=== PATIENT | female | born 1995 | race Caucasian/White ===

== ENCOUNTER → 2017-06-21 | Outpatient (REF) | payer MEDICARE | LOC: M SFHCPLAZ 14:42 | DX: N61.1 Abscess of the breast and nipple (principal) | CPT/HCPCS: 87070 ==

== ENCOUNTER → 2018-04-28 | Outpatient (REF) | payer MEDICARE | LOC: M SFHCPLAZ 17:12 | DX: N61.1 Abscess of the breast and nipple (principal) | CPT/HCPCS: 87186 ==

== ENCOUNTER 2018-08-15 05:43 | Day surgery (SDC) | payer OTHER ==
[~2018-08-15] VITALS: Ht 152.4 cm; Wt 72.6 kg
[~2018-08-15 05:43] MED LIST: METF500T13 PO
[2018-08-15 06:41] LABS: URINE PREG TEST NEGATIVE (NEGATIVE)
[2018-08-15] MEDS ORDERED: PROPOFOL 200 MG/20 ML VIAL As Ordered ONE (07:05)
[2018-08-15] MEDS ORDERED: MIDAZOLAM INJ 2 MG/2 ML VIAL (J2250) As Ordered ONE (07:05)
[2018-08-15] MEDS ORDERED: fentaNYL 100 MCG/2 ML INJECTION (J3010) As Ordered ONE (07:05)
[2018-08-15] MEDS ORDERED: LIDOCAINE 2% INJ 100 MG/5 ML SDV (FOR ANES.) As Ordered ONE (07:05)
[2018-08-15] MEDS ORDERED: ceFAZolin SOD 1 GM in D5W MINI-BAG PLUS 50 ML IV ONE (07:30)
[2018-08-15] MEDS ORDERED: LIDOCAINE 2% W/EPIN INJ 20ML **PRES FREE As Ordered ONE (07:33)
--- NOTE | 2018-08-15 08:08 | POST-OPPD ---
Postoperative Procedure Note Date Of Procedure: Aug 15, 2018 PREOPERATIVE DIAGNOSIS: Right breast cyst POSTOPERATIVE DIAGNOSIS: same FINDINGS: large cyst sac PROCEDURE: Excision right breast cyst SURGEON: Dr Cruz ANESTHESIA: local with seadation SPECIMENS: right breast cyst ESTIMATED BLOOD LOSS: 1cc REPLACED: none DRAINS: none COMPLICATIONS: none POSTOPERATIVE CONDITION: stable JUDY CRUZ DO Aug 15, 2018 08:08
[2018-08-15 08:30] VITALS: BP 126/66
[2018-08-15] MEDS ORDERED: PERCOCET 5MG/325MG TAB PO PRN (08:30)
[2018-08-15] MEDS ORDERED: LR 1,000 ML IV SCH (08:30)
[2018-08-15] MEDS ORDERED: ONDANSETRON 4MG/2ML VIAL (J2405) IV PRN (08:30)
[2018-08-15] MEDS ORDERED: METOCLOPRAMIDE INJ 10MG/2ML VIAL (J2765) IV PRN (08:30)
[2018-08-15] MEDS ORDERED: fentaNYL 100 MCG/2 ML INJECTION (J3010) IV PRN (08:30)
--- NOTE | 2018-08-15 15:31 | RO ---
DATE OF OPERATION: 08/15/2018 PREOPERATIVE DIAGNOSIS: Right breast cyst. POSTOPERATIVE DIAGNOSIS: Right breast cyst. PROCEDURE: Excision right breast cyst. ATTENDING SURGEON: Rosalia Correa DO ANESTHESIA: Local with sedation. SPECIMEN TO SEND: Right breast cyst. BLOOD LOSS: 1 mL. There is no replacement, drains, or complications. DESCRIPTION OF PROCEDURE: This is a 23-year-old female, who has a cyst on the right in her breast. Patient had significant infections from that cyst already twice, treated with antibiotics and incision and drainage (I and D). The last treatment was in our office, and after all the inflammation subsided now she is ready to have it excised. All the risks and benefits and alternatives discussed with the patient and her mother, and she is ready to proceed. On day of surgery, informed consent was confirmed. We marked her in preoperative holding area where the cyst is, and it is palpable and visible with a scar. Then, she was brought into the operating room, placed in supine position, sequential stockings placed on the lower calves, and antibiotics given. Sedation was given to the patient, and she was prepped and draped in the usual sterile fashion. 2% lidocaine with epinephrine was infiltrated in the area. When the local took effect, the elliptical incision carried out encapsulating the whole scar portion of the cyst. Then, careful sharp dissection was done carefully excising the whole sac that was readily visible under the skin, was quite large. The whole sac is excised using a knife and the electrocautery. Hemostasis was obtained until the good, healthy tissue was identified. The sac, with the skin portion of the scar, is sent to pathology. The wound was irrigated with bacitracin irrigation and closed in layers with interrupted #5-0 Monocryl sutures. Steri-Strips were applied, and a compression dressing and occlusive dressing as well. Patient tolerated procedure well, transferred to recovery room in stable condition. TIFFANY
== END 2018-08-15 08:49 | disposition home or self-care (01) ==
LOC: M SDC 05:43
PROVIDERS: ATTEND Plastic Surgery Surgery of the Hand
DX: L72.3 Sebaceous cyst (principal); E28.2 Polycystic ovarian syndrome; Z91.018 Allergy to other foods; Z79.84 Long term (current) use of oral hypoglycemic drugs
CPT/HCPCS: 19120; 84703; 88304; J0690; J2250; J3010

== ENCOUNTER → 2019-03-02 | Outpatient (REF) | payer OTHER | LOC: M LAB REF 12:42 | PROVIDERS: ATTEND Plastic Surgery Surgery of the Hand | DX: L72.3 Sebaceous cyst (principal) ==

== ENCOUNTER → 2019-06-23 | Outpatient (CLI) | payer OTHER ==
--- NOTE | 2019-06-23 17:36 | REP ---
Focused right breast sonography: History: History of right breast abscess with persistent palpable nodule. Rule out sebaceous cyst. Focal non cyclical breast pain. Sonographic findings: A right breast is scanned quite medially at approximately 3 o'clock position. 6 cm from the nipple in the area of previous abscess. There is a questionable fluid collection 1.0 6.0 x 4.0 mm within a slightly thickened area of the dermis. This may be residual skin inflammation. Normal subcutaneous and breast tissue are seen in the scanned field. Impression: BIRADS category II benign findings. Clinical follow-up is advised.
--- NOTE | 2019-06-23 18:55 | REP ---
Right axillary soft tissue sonography: History: Axillary adenopathy. Findings: Scanning through the axillary soft tissues show no evidence of adenopathy, cyst, or mass. Impression: Negative right axillary sonography. No abnormality noted. BIRADS category one negative findings. Clinical follow-up is advised.
== END ==
LOC: M WHC 13:56
PROVIDERS: ATTEND Surgery
DX: N63.0 Unspecified lump in unspecified breast (principal); Z87.2 Personal history of diseases of the skin and subcutaneous tissue

== ENCOUNTER → 2020-10-17 | Outpatient (REF) | payer OTHER | LOC: M LAB REF 21:29 | PROVIDERS: ATTEND Surgery | DX: N61.1 Abscess of the breast and nipple (principal) ==

== ENCOUNTER → 2021-08-11 | Outpatient (REF) | payer BC, OTHER | LOC: M SFHCWAGY 12:47 | PROVIDERS: ATTEND Surgery | DX: N64.51 Induration of breast (principal) ==

== ENCOUNTER → 2021-09-26 | Outpatient (REF) | payer BC ==
[~2021-09-26] MED LIST changes: +LEXA1TAB PO
== END ==
LOC: M LAB REF 19:22
PROVIDERS: ATTEND Surgery
DX: S21.009A Unspecified open wound of unspecified breast, initial encounter (principal); W18.30XA Fall on same level, unspecified, initial encounter; Y92.009 Unspecified place in unspecified non-institutional (private) residence as the place of occurrence of the external cause

== ENCOUNTER → 2021-09-27 | Outpatient (CLI) | payer BC ==
[~2021-09-27] MED LIST changes: -LEXA1TAB PO
== END ==
LOC: M LABSMTC 09:56
PROVIDERS: ATTEND Anesthesiology
DX: Z01.812 Encounter for preprocedural laboratory examination (principal); Z20.822 Contact with and (suspected) exposure to COVID-19

== ENCOUNTER 2021-10-02 07:41 | Day surgery (SDC) | payer BC ==
[~2021-10-02] VITALS: Ht 149.9 cm; Wt 74.8 kg
[~2021-10-02 07:41] MED LIST changes: +LEXA1TAB PO; +LIDOCAINE 2% 100MG/5ML SDV (FOR ANES.) As Ordered ONE; +MIDAZOLAM INJ 2MG/2ML VIAL (J2250 PER 1MG) As Ordered ONE; +ONDANSETRON 4MG/2ML VIAL As Ordered ONE; +dexameTHASONE 4 MG/ML 1ML VIAL (J1100 PER 1MG) As Ordered ONE; +fentaNYL 100 MCG/2 ML INJECTION As Ordered ONE; +propofoL 200 MG/20 ML VIAL As Ordered ONE
[2021-10-02] MEDS ORDERED: LR 1,000 ML IV ONE (08:30)
[2021-10-02] MEDS ORDERED: HEPARIN SOD (PORCINE) 5000UNITS/ML 1ML VIAL/SYRINGE SQ ONE (08:30)
[2021-10-02] MEDS ORDERED: ceFAZolin SOD 2 GM in IV 1 EA IV ONE (08:30)
[2021-10-02] MEDS ORDERED: SCOPOLAMINE 1MG TRANSDERMAL PATCH TOP ONE (09:15)
[2021-10-02] MEDS ORDERED: LIDOCAINE 1% SDV 30ML VIAL As Ordered ONE (09:16)
[2021-10-02] MEDS ORDERED: BUPIVACAINE HCL 0.25% 30ML VIAL As Ordered ONE (09:16)
[2021-10-02] MEDS ORDERED: ACETAMINOPHEN 1000MG 100ML IV BTL (OFIRMEV) (J0131 PER 10MG) As Ordered ONE (09:58)
[2021-10-02] MEDS ORDERED: BACTDSTA PO (11:23)
[2021-10-02] MEDS ORDERED: ROXI1TAB2 PO (11:23)
[2021-10-02] MEDS ORDERED: ONDANSETRON 4MG/2ML VIAL As Ordered ONE (11:27)
[2021-10-02] MEDS ORDERED: ONDANSETRON 4MG/2ML VIAL IV PRN (11:40)
[2021-10-02] MEDS ORDERED: LR 1,000 ML IV SCH (11:40)
[2021-10-02] MEDS ORDERED: oxyCODONE 5MG TAB PO PRN (11:40)
[2021-10-02] MEDS ORDERED: PROMETHAZINE 25MG/ML 1ML VIAL IV PRN (11:40)
[2021-10-02] MEDS ORDERED: MEPERIDINE INJ 25 MG/ML VIAL (J2175) IV PRN (11:40)
[2021-10-02] MEDS ORDERED: HYDROMORPHONE HCL 0.5 MG/ 0.5 ML SYRINGE (J1170 PER 1) IV PRN ×2 (11:40)
[2021-10-02 13:36] VITALS: BP 116/59
== END 2021-10-02 13:39 | disposition home or self-care (01) ==
LOC: M SDC 07:41
PROVIDERS: ATTEND Surgery
DX: L92.9 Granulomatous disorder of the skin and subcutaneous tissue, unspecified (principal); L90.5 Scar conditions and fibrosis of skin; F41.9 Anxiety disorder, unspecified; E28.2 Polycystic ovarian syndrome; R35.89 Other polyuria; N32.89 Other specified disorders of bladder; L70.9 Acne, unspecified; Z79.899 Other long term (current) drug therapy; Z79.84 Long term (current) use of oral hypoglycemic drugs; Z91.018 Allergy to other foods; Z91.011 Allergy to milk products
CPT/HCPCS: 19101; 36415; 81025; 86850; 86900; 86901; 88307; J0131; J0690; J1100; J1170; J1644; J2250; J2405; J2550; J3010